=== PATIENT | female | born 1995 | race Two or more races ===

== ENCOUNTER 2025-02-19 16:47 | Inpatient (IN) | payer OTHER ==
[2025-02-19] VITALS (7 sets, daily range): BP systolic 104–127; BP diastolic 55–66; PULSE 74–100; RESP 15–21; TEMP 97.4–98.3; O2SAT 96–100
[~2025-02-19] VITALS: Ht 154.9 cm; Wt 98.9 kg
--- NOTE | 2025-02-19 17:40 | DVHHP2 ---
OB CC & HPI Date Date of Admission: Feb 19, 2025 Patient Identification: : 4 Para: 3 Chief Complaints: Reason for admission: vaginal bleeding, other (Twenty-seven estimated gestational age weeks abruptio placenta patient states she started bleeding at 4:00 p.m. and does not now 5:34 p.m. the OR crew and carton machine operator notified stat approximately 5:00 p.m. check nurse's documentation) Indication for induction: other (Abruption 27 weeks estimated weight 3 lb.) Past Medical History Cardiac: No pertinent Hx Pulmonary: No pertinent Hx Central Nervous System: No pertinent Hx GI: No pertinent Hx Hemotology/Oncology: No pertinent Hx Hepatobiliary: No pertinent Hx Psychiatric: No pertinent Hx Musculoskeletal: No pertinent Hx Rheumotologic: No pertinent Hx Infectious Disease: No peritnent Hx ENT: No pertinent Hx Renal/: No pertinent Hx Endocrine: No pertinent Hx Dermatology: No pertinent Hx Past Surgical History: Other (Cholecystectomy no complications) OB History OB History Care: Limited Care Ultrasounds: Other (No care or ultrasound immediately available u ltrasound performed emergently on arrival see report) Obstetrical Complications: Other (Placenta previa extreme placental abruption) Medical Complications: None Other Concerns: Patient is morbidly obese Allergies: Coded Allergies: NO KNOWN ALLERGIES (Unverified , 02/19/25) Allergies No known drug allergies Family & Social History Family/Social History Blood Type: A+ Rubella: immune RPR/VDRL: Negative GBS Status: Unknown HBsAG: Negative Review of Systems Constitutional: No symptom reported Ears, Nose, & Throat: No symptom reported Eyes: No symptom reported Pulmonary/Respiratory: No symptom reported Cardiovascular: No symptom reported Gastrointestinal: No symptom reported Genitourinary: No symptom reported Musculoskeletal: No symptom reported Skin: No symptom reported Psychiatric: No symptom reported Endocrine: No symptom reported Hemotologic/Lymphatic: No symptom reported OB Admission Exam Physical Exam HEENT: TMs Normal, Fontanelles Normal, Nasal Mucosa Normal, Eyes non-injected, Oropharynx Normal, PERRLA, Moist Membranes, EOMI Heart: Rhythm Normal Lungs: Clear Abdomen: Non tender Extremities: Normal Reflexes: Normal Cervical Dilatation: other (No pelvic exam performed secondary to complete previa and heavy vaginal bleeding heart tones in the 100s as low as 80) OB Plan Plan Admitting Diagnosis: Proximally 27 week intrauterine placenta previa complete by ultrasound today abruptio placenta active heavy vaginal bleeding Plan: Section (Emergent section) Other Plan: Patient and were in the room and we discussed risks benefits complications alternatives we also discussed the fact that she will probably need a classical vertical incision in recommended in the future pregnancies she should have section. She states this is her last . She understands the risks infection bleeding anesthesia acute chronic pain damage to adjacent organs transfusion transfusion reaction my stroke HIV DVT mi paralysis blindness. Despite all these risks patient had only wants to proceed all questions answered and encouraged. Patient understands the the infant as extreme remote from term and then the baby will need full life-support most likely including long-term care and they would like everything done. Visit Coding OBGYN Date of Service: Feb 19, 2025 Billing Provider: MARYELLEN HAYNES DO [employer] Common Visit Codes: [id number] INP/OBS CARE(MOD), [id number] INP/OBS CARE(HIGH), 48052-FLT/OBS SAME DATE (LOW) HORSE BREEDER Procedure Codes: [id number] W/ CARE MARYELLEN HAYNES DO Feb 19, 2025 17:40
--- NOTE | 2025-02-19 17:44 | DVHOP2 ---
Operative Report - 2 Report Details Date: 02/19/25 Preop Diagnosis: Twenty-seven week placenta previa placental abruption , active heavy bleeding Postop Diagnosis: Same Surgeon: Kris Haynes Electro Plater: [facility] was present as well as the OR team. Anesthesiologist: Fabricio GAXIOLA Anesthesia: General Drains: Grover catheter Implant: None Consent: The patient was informed of the risks and benefits of the procedure. These include but are not limited to complications of anesthesia, postoperative infection, incomplete relief of symptoms, recurrence of symptoms, damage to blood vessels, nerves and tendons, deep venous thrombosis, pulmonary embolism and possible need for repeat surgery in the future. Complications: None Estimated Blood Loss: 800 cc Fluids: See anesthesia log Findings: Infant female Apgars 2,4,6 1290 gms Indications for Surgery: 27 week active placental abruption placenta previa bradycardia Name of Procedure Performed Primary vertical uterine incision Procedure Details Procedure Details: Patient is brought to the operating room emergently placed in left lateral tilt supine position as general anesthesia and airway established having already prepped and draped her low Pfannenstiel incision was made with scalpel down to the rectus fascia nicked in midline carried laterally rectus muscle muscle mm midline entered with sharp dissection vesicouterine peritoneum taken off lower uterine segment and a vertical incision was made with scalpel through the uterus down to the chorionic membranes there was proximally 250 cc clot which bowel just out of the the uterus prior to entering the chorionic sac which was ruptured with sharp dissection and had clear fluid was found to be in oblique position face-down backup gently placed 1 hand inside of the hysterotomy incision and reposition the infant to vertex face down and then the head essentially delivered spontaneously nose with body and remaining membranes was immediately handed off to waiting hvac instructor and respiratory team as the cut cord was cut and clamped was not able to obtain CO2 blood gases on the cord as there was scant blood in the cord we were barely able to get some venous blood out of it for labs. At this point placenta completely removed the hysterotomy incision was irrigated lower uterine segment was bluntly opened and we then closed the hysterotomy incision with a running continuous double layer of 0 Vicryl running continuous vesicouterine peritoneum was then replaced with running continuous 2-0 Vicryl we had complete hemostasis at this point EBL 100 cc placenta looked grossly intact other than it was in the lower uterine segment consistent with previa as well as a large clot found which was fresh about the size of my fist. We then cleared cleared the gutters tubes ovaries uterus all appeared normal instrument lap sponge count correct x1 the peritoneum was then closed with running continuous 2-0 Vicryl the rectus fascia was then closed with running continuous 0 looped PDS Camper's Fabiano's fascia were closed with interrupted of plain gut 2-0. And the skin was closed with subcuticular 3-0 Prolene benzoin Steri-Strips placed ABD pad and pressure dressing placed. Patient was then frog-legged in the vaginal clots were cleared and the uterus was firm. was taken to the nursery with the hvac instructor respiratory team mother was taken to PACU recovery room. Specimen: Placenta umbilical blood sample Condition Good Disposition Mother went to PACU went to nursery MARYELLEN HAYNES DO Feb 19, 2025 17:44
[2025-02-19] MEDS ORDERED: DERMOPLAST 60ML BOTTLE TOP PRN (17:45)
[2025-02-19] MEDS ORDERED: BUTORPHANOL TARTRATE 2 MG/1 ML VIAL IV PRN ×2 (17:45)
[2025-02-19] MEDS ORDERED: LIDOCAINE 2%HCL (LOCAL ANESTH.) INJ 20ML MDV IJ PRN (17:45)
[2025-02-19] MEDS ORDERED: PHISODERM TOP SOLN 240ML BTL TOP PRN (17:45)
[2025-02-19] MEDS ORDERED: WITCH HAZEL-GLYCERIN PAD TOP PRN (17:45)
[2025-02-19 18:24] LABS: Hematocrit 30.8 % (36.0-46.0); Hemoglobin 10.0 g/dL (12.2-16.2); Mean Corpuscular Hemoglobin 28.3 pg (28.0-32.0); Mean Corpuscular Volume 86.8 fL (80.0-100.0); Nucleated Red Blood Cells % 0.0 %
[2025-02-19] MEDS: SUCCINYLCHOLINE CHLORIDE 20 MG/ML 10ML VIAL IV ONE (18:28)
[2025-02-19] MEDS: ceFAZolin 2 GM/D5W50ml 50 ML IV ONE (18:29)
[2025-02-19] MEDS ORDERED: MIDAZOLAM HCL 2MG/2ML 2ml VIAL (1mg/ml) ONE (18:32)
[2025-02-19] MEDS ORDERED: fentaNYL CITRATE 5 ML ONE (18:32)
[2025-02-19] MEDS ORDERED: PROPOFOL 10 MG/ML 20 ML IV ONE ×4 (18:34→19:18)
[2025-02-19 18:35] LABS: Alanine Aminotransferase 18 U/L (7-40); Albumin 3.3 g/dL (3.2-4.8); Alkaline Phosphatase 107 U/L (46-116); Anion Gap 11 (5-15); BUN/Creatinine Ratio 19.2 (10.0-20.0); Blood Urea Nitrogen 10 mg/dL (9-23); Calcium 8.8 mg/dL (8.7-10.4); Carbon Dioxide 21 mmol/L (20-31); Chloride 106 mmol/L (98-107); Potassium 4.2 mmol/L (3.5-5.1); Sodium 138 mmol/L (136-145); Total Protein 5.8 g/dL (5.7-8.2)
[2025-02-19] MEDS ORDERED: PHENYLEPHRINE HCL 10 MG/ML VL ONE (18:35)
[2025-02-19 18:42] LABS: Bilirubin, Total 0.2 mg/dL (0.2-1.0); Glucose 107 mg/dL (74-106)
[2025-02-19] MEDS ORDERED: HYDROmorphone HCL 2 MG/ML VL/or syr IV PRN (19:00)
[2025-02-19] MEDS: ACETAMINOPHEN IV 1000 MG/100ML (10MG/ML) IV PRN (19:00)
[2025-02-19] MEDS ORDERED: ONDANSETRON HCL 4 MG/2 ML VIAL IV PRN ×2 (19:00→19:30)
[2025-02-19] MEDS ORDERED: MEPERIDINE HCL (25 MG/ML) 1ML VIAL IV PRN (19:00)
[2025-02-19] MEDS ORDERED: METOCLOPRAMIDE HCL 5MG/ml INJ 2ml VIAL IV PRN (19:00)
[2025-02-19] MEDS ORDERED: MEPERIDINE HCL (25 MG/ML) 1ML VIAL ONE (19:02)
[2025-02-19] MEDS: GELATIN 1 SPONGE SIZE 100 TOP ONE (19:08)
[2025-02-19] MEDS ORDERED: ONDANSETRON HCL 4 MG/2 ML VIAL ONE (19:21)
[2025-02-19] MEDS ORDERED: LACTATED RINGER'S 1,000 ML IV SCH (19:30)
[2025-02-19] MEDS ORDERED: LACT. RINGERS/OXYTOCIN 20UNITS 1,000 ML IV ONE (19:30)
[2025-02-19] MEDS ORDERED: GUM (CHEWING) 1 GUM CHEW CHEW ONE (19:30)
[2025-02-19] MEDS: LACTATED RINGER'S 1,000 ML IV SCH (19:35)
--- NOTE | 2025-02-19 19:41 | DVH ---
OB ULTRASOUND, LIMITED CLINICAL INDICATION: bleeding 27 weeks TECHNIQUE: Multiple grayscale ultrasound and M-mode images were obtained of the pelvis for evaluation of intrauterine . COMPARISON: None FINDINGS: Limited study as the patient was emergently taken to the operating room for a section A single living fetus is seen in variable presentation. Biparietal diameter: 6.8 cm (27 weeks, 3 days) Head Circumference: 26.34 cm (28 weeks, 3 days) Abdomen Circumference: 23.7 cm (27 weeks, 4 days) Femur Length: 6.21 cm (32 weeks, 1 days) Estimated weight: 1362 grams (+/- 204 grams). Placenta: Anterior, grade 2. Possible complete placenta previa although the end of the placenta is n ot well-visualized. Amniotic fluid: Visibly normal. heart rate: 93 beats/min. A complete anatomic survey was not performed on this exam. IMPRESSION: 1. Single living intrauterine with an estimated gestational age of 29 weeks, 0 days, bentley esponding to an estimated date of delivery of 05/07/2025. 2. bradycardia measuring 93 beats per minute
[2025-02-19] MEDS ORDERED: ACETAMINOPHEN IV 100 ML IV ONE (19:56)
[2025-02-19] MEDS: MORPHINE SULFATE 4 MG/ML SYR/VIAL IV PRN (20:07)
[2025-02-19 20:14] LABS: INR 0.95 (0.9-1.15); Partial Thromboplastin Time 24.7 SEC (24.5-34.5); Prothrombin Time 10.1 sec (9.3-11.8)
[2025-02-19 20:53] LABS: Hepatitis C Antibody Negative (Negative)
[2025-02-19] MEDS: HYDROmorphone HCL 2 MG/ML VL/or syr IV PRN (21:54)
[2025-02-20] VITALS (9 sets, daily range): BP systolic 95–119; BP diastolic 52–60; PULSE 68–98; RESP 15–20; TEMP 98.1–98.5; O2SAT 94–99
[2025-02-20] MEDS: ceFAZolin 1GM/50ML 50 ML IV SCH (01:30)
[2025-02-20 01:42] LABS: Urine Protein, UAD TRACE (Negative)
[2025-02-20 01:50] LABS: Opiate Scree,Urine Pos (NEGATIVE); Phencyclidine Screen, Urine Neg (NEGATIVE)
[2025-02-20 02:01] LABS: Amphetamine Screen, Urine Neg (NEGATIVE); Barbiturate Scree,Urine Neg (NEGATIVE); Benzodiazephine Screen, Urine Pos (NEGATIVE); Cannabinoid Screen, Urine Neg (NEGATIVE); Cocaine Screen, Urine Neg (NEGATIVE)
[2025-02-20] MEDS: ACETAMINOPHEN IV 1000 MG/100ML (10MG/ML) IV PRN (02:58)
[2025-02-20 04:47] LABS: Hematocrit 23.6 % (36.0-46.0); Hemoglobin 7.7 g/dL (12.2-16.2); Mean Corpuscular Hemoglobin 27.9 pg (28.0-32.0); Mean Corpuscular Volume 85.1 fL (80.0-100.0); Nucleated Red Blood Cells % 0.1 %
--- NOTE | 2025-02-20 06:20 | DVHPN2 ---
Chief Complaints Patient reports: No new complaints, Feels better Nursing reports: No new complaints, No chest pain, No dizziness, Other (Pain controlled ambulating having minimal were) Objective Vitals Vital Signs Date Time Temp Pulse Resp B/P (MAP) Pulse Ox O2 Delivery O2 Flow Rate FiO2 02/20/25 03:10 98.1 76 15 115/53 (73) 99 98.1 02/19/25 19:30 Room Air 02/19/25 18:31 10.0 100 Medications Current Medications Medications (Trade) Dose Ordered Sig/Truman Route PRN Reason Start Time Stop Time Status Last Admin Acetaminophen (Ofirmev) 1,000 mg [id number] PRN IV MILD PAIN (1-3 PAIN SCALE) 02/20/25 02:45 02/21/25 02:44 02/20/25 02:58 Benzocaine (Dermoplast) 1 applic PRN PRN TOP PERINEAL AREA DISCOMFORT 02/19/25 17:45 Cancel Butorphanol Tartrate (Stadol Injection) 1 mg Q4HPRN PRN IV MODERATE PAIN (4-6 PAIN SCALE) 02/19/25 17:45 Cancel Butorphanol Tartrate (Stadol Injection) 2 mg Q4HPRN PRN IV SEVERE PAIN (7-10 PAIN SCALE) 02/19/25 17:45 Cancel Cefazolin Sodium 50 ml @ 100 mls/hr Q8H IV 02/20/25 01:30 02/20/25 17:59 02/20/25 01:30 Hydromorphone HCl (Dilaudid Injection) 1 mg Q2HPRN PRN IV MODERATE PAIN (4-6 PAIN SCALE) 02/19/25 20:00 02/20/25 01:02 Lactated Ringer's 1,000 ml @ 125 mls/hr Q8H IV 02/19/25 17:45 02/19/25 19:35 Lactated Ringer's 1,000 ml @ 125 mls/hr Q8H IV 02/19/25 19:30 Lidocaine HCl (Xylocaine) 20 ml ONCE PRN IJ PERINEAL AREA DISCOMFORT 02/19/25 17:45 Cancel Morphine Sulfate 2 mg Q4HP PRN IV SEVERE PAIN (7-10 PAIN SCALE) 02/19/25 19:30 02/19/25 20:07 Ondansetron HCl (Zofran) 4 mg Q4HP PRN IV NAUSEA / VOMITING 02/19/25 19:30 Sodium Lauryl Sulfate (Phisoderm) 240 ml PRN PRN TOP PERINEAL AREA DISCOMFORT 02/19/25 17:45 Cancel Witch Kirstie (Tucks) 1 pad PRN PRN TOP PERINEAL AREA DISCOMFORT 02/19/25 17:45 Cancel General: Normal Lungs: Normal Cardiovascular: Normal Abdominal: Normal (Wound clean dry and intact) Musculoskeletal: Normal Extremities: Normal Skin: Normal Neurological: Normal Studies Laboratory Tests 02/20/25 03:24 02/19/25 17:46 Test 02/19/25 17:46 Range/Units Serum Glucose 107 H 74-106 mg/dL Ass/Plan Assessment Postop day 1 stable advanced Plan Advanced care MARYELLEN Sloan DO Feb 20, 2025 06:20
[2025-02-20] MEDS: HYDROcodone-ACET 5/325MG TAB PO PRN (12:25)
[2025-02-20 17:49] LABS: Hematocrit 27.5 % (36.0-46.0); Hemoglobin 9.0 g/dL (12.2-16.2); Mean Corpuscular Hemoglobin 28.3 pg (28.0-32.0); Mean Corpuscular Volume 86.0 fL (80.0-100.0); Nucleated Red Blood Cells % 0.0 %
[2025-02-20] MEDS: SIMETHICONE 80 MG CHEWABLE TABLET PO SCH (19:22)
[2025-02-20] MEDS: IBUPROFEN 800 MG TAB PO PRN (21:00)
[2025-02-20] MEDS: DOCUSATE SOD 100 MG CAP PO SCH (22:34)
[2025-02-21 03:00] VITALS: BP 96/51; PULSE 86; RESP 16; TEMP 98; O2SAT 96
--- NOTE | 2025-02-21 04:21 | DVHPN2 ---
Chief Complaints Patient reports: No new complaints (Coping well. Ambulates and voids well. Tolerates foods well. Baby transferred. Denies blues) Nursing reports: No new complaints Objective Vitals Vital Signs Date Time Temp Pulse Resp B/P (MAP) Pulse Ox O2 Delivery O2 Flow Rate FiO2 02/21/25 03:00 98.0 86 16 96/51 (66) 96 98.0 02/20/25 18:30 Room Air 02/19/25 18:31 10.0 100 Medications Current Medications Medications (Trade) Dose Ordered Sig/Truman Route PRN Reason Start Time Stop Time Status Last Admin Acetaminophen/ Hydrocodone Bitart ([place] 5/325MG Tab) 1 tab Q4HPRN PRN PO FOR PAIN 1-6 02/20/25 10:45 Acetaminophen/ Hydrocodone Bitart ([place] 5/325MG Tab) 2 tab Q4HPRN PRN PO FOR PAIN 7-10 02/20/25 10:45 02/20/25 23:07 Dimethicone (Mylicon Tab) 80 mg QID PO 02/20/25 12:00 02/20/25 19:22 Docusate Sodium (Colace Capsule) 100 mg Q12HR PO 02/20/25 22:00 02/20/25 22:34 Ibuprofen (Motrin Tablet) 800 mg Q8HP PRN PO BREAKTHROUGH PAIN 02/20/25 10:45 02/20/25 21:00 General: Normal Lungs: Normal, Normal breath sounds, Lungs clear Cardiovascular: Normal, Regular rate and rhythm Abdominal: Normal (Incision clean, dry, and intact. BS+ x 4Q) Musculoskeletal: Normal Extremities: Normal Skin: Normal Others Breasts soft, nipples intact Lochia minimal, no odor Studies Laboratory Tests 02/20/25 17:26 02/19/25 17:46 Test 02/19/25 17:46 Range/Units Serum Glucose 107 H 74-106 mg/dL Ass/Plan Assessment 2nd PP/Post OP day Plan Continue PP/Post OP management Evaluate for d/c tomorrow CLIVE CARDENAS CNM Feb 21, 2025 04:21
--- NOTE | 2025-02-21 10:33 | DVHINCON2 ---
Date of Service if different f: Feb 21, 2025 Consultation ([facility]) Labs Laboratory Tests Test 02/19/25 17:46 02/19/25 19:37 02/20/25 01:15 02/20/25 17:26 Sodium Level 138 mmol/L (136-145) Potassium Level 4.2 mmol/L (3.5-5.1) Chloride Level 106 mmol/L (98-107) Carbon Dioxide Level 21 mmol/L (20-31) Anion Gap 11 (5-15) Blood Urea Nitrogen 10 mg/dL (9-23) Creatinine 0.52 mg/dL (0.550-1.02) Glomerular Filtration Rate Calc 129 mL/min (>90) BUN/Creatinine Ratio 19.2 (10.0-20.0) Serum Glucose 107 mg/dL (74-106) Calcium Level 8.8 mg/dL (8.7-10.4) Total Bilirubin 0.2 mg/dL (0.2-1.0) Aspartate Amino Transf (AST/SGOT) 20 U/L (13-40) Alanine Aminotransferase (ALT/SGPT) 18 U/L (7-40) Alkaline Phosphatase 107 U/L (46-116) Total Protein 5.8 g/dL (5.7-8.2) Albumin 3.3 g/dL (3.2-4.8) Treponema pallidum Antibody Non-reactive (Negative) Hepatitis B Surface Antigen Negative (Negative) Hepatitis C Antibody Negative (Negative) HIV (1&2) Antibody Negative (Negative) Rubella Antibody Positive Prothrombin Time 10.1 sec (9.3-11.8) Prothromb Time International Ratio 0.95 (0.9-1.15) Activated Partial Thromboplast Time 24.7 SEC (24.5-34.5) Urine Color Yellow (Yellow) Urine Clarity Clear (Clear) Urine pH 6.0 (5.0-9.0) Urine Specific [place] 1.033 (1.001-1.035) Urine Protein Trace (Negative) Urine Ketones 2+ (Negative) Urine Blood Negative /uL (Negative) Urine Nitrite Negative (Negative) Urine Bilirubin Negative (Negative) Urine Urobilinogen Normal mg/dL (Negative) Urine Leukocyte Esterase Negative /uL (Negative) Urine RBC None seen /hpf (0 - 4) Urine Microscopic WBC 2 /HPF (0-5) Urine Squamous Epithelial Cells Few /hpf (<5) Urine Bacteria None seen /hpf (None Seen) Urine Mucus Few (None Seen) Urine Glucose Normal mg/dL (Normal) Urine Opiates Screen Pos (NEGATIVE) Urine Fentanyl Screen Pos (NEGATIVE) Urine Barbiturates Screen Neg (NEGATIVE) Urine Phencyclidine Screen Neg (NEGATIVE) Urine Amphetamines Screen Neg (NEGATIVE) Urine Benzodiazepines Screen Pos (NEGATIVE) Urine Cocaine Screen Neg (NEGATIVE) Urine Cannabinoids Screen Neg (NEGATIVE) White Blood Count 15.5 10^3/uL (4.4-10.8) Red Blood Count 3.20 10^6/uL (4.0-5.20) Hemoglobin 9.0 g/dL (12.2-16.2) Hematocrit 27.5 % (36.0-46.0) Mean Corpuscular Volume 86.0 fL (80.0-100.0) Mean Corpuscular Hemoglobin 28.3 pg (28.0-32.0) Mean Corpuscular Hemoglobin Concent 32.8 g/dL (32.0-36.0) Red Cell Distribution Width 13.5 % (11.8-14.3) Platelet Count 226 10^3/uL (140-450) Mean Platelet Volume 9.1 fL (6.9-10.8) Neutrophils (%) (Auto) 78.5 % (37.0-80.0) Lymphocytes (%) (Auto) 14.1 % (10.0-50.0) Monocytes (%) (Auto) 7.0 % (0.0-12.0) Eosinophils (%) (Auto) 0.1 % (0.0-7.0) Basophils (%) (Auto) 0.3 % (0.0-2.0) Neutrophils # (Auto) 12.2 10 ^3/uL (1.6-8.6) Lymphocytes # (Auto) 2.2 10 ^3/uL (0.4-5.4) Monocytes # (Auto) 1.1 10 ^3/uL (0-1.3) Eosinophils # (Auto) 0 10 ^3/uL (0-0.8) Basophils # (Auto) 0 10 ^3/uL (0-0.2) Nucleated Red Blood Cells 0.0 % Appetite: Good Appearance: Stated age, Groomed Psychomotor activity: WNL Behavioral: Cooperative Eye contact: Appropriate Speech: WNL Affect: Mood Congruent Mood: Anxious Thought processes: Linear/Goal-directed Thought content: WNL Suicidal ideations: Absent Homicidal ideations: Absent Orientation: Person, Place, Time, Situation Memory intact: Recent Intellect: Average Abstractability: WNL Concentration: Adequate Attention: Adequate Judgement: WNL Insight: Good Vitals Vital Signs Date Time Temp Pulse Resp B/P (MAP) Pulse Ox O2 Delivery O2 Flow Rate FiO2 02/21/25 07:00 Room Air 0.0 02/21/25 03:00 98.0 86 16 96/51 (66) 96 98.0 02/19/25 18:31 100 Current medications Current Medications Medications Dose Ordered Sig/Truman Route Start Time Stop Time Status Last Admin Dose Admin Witgina Kirstie 1 pad PRN PRN TOP 02/19/25 17:45 Cancel Sodium Lauryl Sulfate 240 ml PRN PRN TOP 02/19/25 17:45 Cancel Benzocaine 1 applic PRN PRN TOP 02/19/25 17:45 Cancel Butorphanol Tartrate 1 mg Q4HPRN PRN IV 02/19/25 17:45 Cancel Butorphanol Tartrate 2 mg Q4HPRN PRN IV 02/19/25 17:45 Cancel Lidocaine HCl 20 ml ONCE PRN IJ 02/19/25 17:45 Cancel Hydromorphone HCl 1 mg Q2HPRN PRN IV 02/19/25 20:00 02/20/25 07:53 1 MG Docusate Sodium 100 mg Q12HR PO 02/20/25 22:00 02/21/25 10:01 100 MG Dimethicone 80 mg QID PO 02/20/25 12:00 02/21/25 05:32 80 MG Ibuprofen 800 mg Q8HP PRN PO 02/20/25 10:45 02/20/25 21:00 800 MG Acetaminophen/ Hydrocodone Bitart 1 tab Q4HPRN PRN PO 02/20/25 10:45 Acetaminophen/ Hydrocodone Bitart 2 tab Q4HPRN PRN PO 02/20/25 10:45 02/21/25 08:40 2 TAB Medication adjusted: No Labs ordered: No Diagnosis: adjustment disorder Plan : Patient has normal sadness associate with traumatic delivery. She denies suicidal/homicidal thoughts. Patient can benefit with referrals for outpatient support for therapy/counseling. Patient may discharge after medical clearance History of Present Illness Reason for Consult : [place] scale score of 11 HPI : This is a 29-year-old female presented here for abnormal bleeding with and delivered at 27 weeks and ruptured placenta. Patient delivered baby and now in NICU. Patient is evaluated via telepsychiatry platform. She reports having a traumatic 3 days. She woke up with bleeding and went to the hospital because worried about her baby. She is sad because this is the most traumatic thing that has ever happened to her and also has not seen her baby. She wants to see her baby but told she will see baby tomorrow and looking forward to that. She denies feeling depressed, anhedonia or hopelessness. She has a 9 year child at home and no hx of depression or psychosis with that . She denies suicidal/homicidal ideation. She denies any prior history of humble or psychosis and presently no auditory/visual hallucinations or paranoid thoughts. Past Psychiatric History : She denies any prior diagnoses, psych admissions, holds or suicide attempts. She denies prior prescription for psychotropic medications. Past Medical History : She denies Social History : She lives with and their child. She denies any history or trauma or abuse. She reports good support with spouse and feels safe at home. She denies any substance use. She denies any known family history. She is employed in transportation logistics. ALMA OSCAR DNP Feb 21, 2025 10:33
[2025-02-21] MEDS ORDERED: HYDR-4072 PO (10:37)
[2025-02-21] MEDS ORDERED: IBUP-1456 PO (10:37)
[2025-02-21] MEDS ORDERED: DOCU-94 PO (10:37)
[2025-02-21 11:20] VITALS: BP 108/58; PULSE 89; RESP 15; TEMP 98.9; O2SAT 96
[2025-02-21 11:37] LABS: Hemoglobin 7.8 g/dL (12.2-16.2); Nucleated Red Blood Cells % 0.0 %
[2025-02-21 11:38] LABS: Hematocrit 23.1 % (36.0-46.0); Mean Corpuscular Hemoglobin 28.4 pg (28.0-32.0); Mean Corpuscular Volume 84.6 fL (80.0-100.0)
[2025-02-21 15:00] VITALS: BP 121/61; PULSE 104; RESP 18; TEMP 98.2; O2SAT 97
[2025-02-21] MEDS: HYDROcodone-ACET 5/325MG TAB PO PRN (15:03)
[2025-02-21 18:46] VITALS: BP 135/62; PULSE 86; RESP 8; TEMP 98.1; O2SAT 98
--- NOTE | 2025-02-21 19:45 | DVHPN2 ---
Progress Note Date Seen: Feb 21, 2025 Subjective Colleen is standing and ambulating around room upon entry. She is really feeling ready to be discharged and wants to go home so she can get to her baby sooner. SUBJECTIVE: -Lochia minimal -Regular diet well tolerated. -Ambulating and voiding well w/o feeling dizzy or lightheaded -Pain relieved with oral medication PRN -Passing flatus but no BM yet. -Has been pumping to stimulate milk/colostrum production, but has not seen any -Desires and requests to be discharged home today (02/21) vital signs Vital Sign Date Time Temp Pulse Resp B/P (MAP) Pulse Ox O2 Delivery O2 Flow Rate FiO2 02/21/25 18:46 Room Air 0.0 02/21/25 18:46 98.1 86 8 135/62 (86) 98 98.1 02/19/25 18:31 100 Total Intake and Output 02/20/25 02/20/25 02/21/25 15:00 23:00 07:00 Output Total 1200 ml 400 ml Balance -1200 ml -400 ml medications Current Medications Medications Dose Ordered Sig/Truman Route Start Time Stop Time Status Last Admin Dose Admin Marcio Thacker 1 pad PRN PRN TOP 02/19/25 17:45 Cancel Sodium Lauryl Sulfate 240 ml PRN PRN TOP 02/19/25 17:45 Cancel Benzocaine 1 applic PRN PRN TOP 02/19/25 17:45 Cancel Butorphanol Tartrate 1 mg Q4HPRN PRN IV 02/19/25 17:45 Cancel Butorphanol Tartrate 2 mg Q4HPRN PRN IV 02/19/25 17:45 Cancel Lidocaine HCl 20 ml ONCE PRN IJ 02/19/25 17:45 Cancel Hydromorphone HCl 1 mg Q2HPRN PRN IV 02/19/25 20:00 02/20/25 07:53 1 MG Docusate Sodium 100 mg Q12HR PO 02/20/25 22:00 02/21/25 10:01 100 MG Dimethicone 80 mg QID PO 02/20/25 12:00 02/21/25 17:29 80 MG Ibuprofen 800 mg Q8HP PRN PO 02/20/25 10:45 02/20/25 21:00 800 MG Acetaminophen/ Hydrocodone Bitart 1 tab Q4HPRN PRN PO 02/20/25 10:45 02/21/25 15:03 1 TAB Acetaminophen/ Hydrocodone Bitart 2 tab Q4HPRN PRN PO 02/20/25 10:45 02/21/25 08:40 2 TAB laboratory and microbiology Laboratory Tests 02/21/25 11:05 02/19/25 17:46 Test 02/19/25 17:46 Range/Units Serum Glucose 107 H 74-106 mg/dL Objective OBJECTIVE: -A&O x4. No apparent distress. Affect appropriate -Afebrile, VSS -Chest: heart and lung sounds normal. -Breasts: Nipples intact w/o cracks or soreness -Abdomen: normal BS, soft, non-tender, no rebound or guarding, fundus firm @ U- 1, -Lower abdominal incision site with dressing dry and intact. No edema, erythema or induration -Extremities: no edema or tenderness Problems(with codes): (1) Status post delivery Assessment/Plan ASSESSMENT 29 yo now Post operative & ppd # 2 s/p Primary Section for placental previa with abruption, doing well. Pumping Bleeding with acute drop in hematocrit PLAN -Continue pain management with oral medications as previously ordered -Increase fluid intake and fiber in diet to promote regular bowel movements, Laxative PRN -Discussed hand expression vs pumping and other ways to perform breast massage. Encouraged patient to continue stimulating breast and production will follow. -Recommended patient take iron every other day for at least a month -Educated patient on self-care and warning signs to watch for, including PPH, PPD, infection, and pre-eclampsia -Anticipate discharge today, whenever patient is ready Plan discussed with: Patient Visit Coding OBGYN Date of Service: Feb 21, 2025 Billing Provider: DORY MORENO CNM CORE MACHINE OPERATOR Common Visit Codes: [id number] INP/OBS CARE(MOD) DORY MORENO CNM Feb 21, 2025 19:45
--- NOTE | 2025-02-21 19:47 | DVHDS2 ---
Obstetrics Discharge Summary Obstetrics Discharge Summary Date of Admission: Feb 19, 2025 Date of Discharge: Feb 21, 2025 Reason For Admission: Vaginal Bleeding ( at 27w2d admitted for placenta previa and abruption. Consented to emergency section. Baby transferred to [facility]. Hgb dropped to 7.0. Otherwise PP course without complication) Intrapartum Procedures: (Low Cervical Transverse) Discharge Diagnosis: Placenta Previa, Delivery Discharge Information: Activity (Unrestricted. Advance as tolerated. Balance activities with rest periods. No heavy lifting, pushing or straining. Pelvic rest x 6 weeks), Diet (Routine), Medications (see med list), Instructions (Routine), Discharge to (Home), Accompanied by (partner), Discarge date (02/21/25) Discharge Care Plan Instructions - self care instructions given - emergency signs and symptoms including but not limited to pre-eclampsia precautions and signs of infection, PPH & of PPD reviewed with patient. -Follow up with OB Provider in 1 week for incision check Visit Coding OBGYN Date of Service: Feb 21, 2025 Billing Provider: DORY MORENO CNM LOAN OPERATIONS MANAGER Common Visit Codes: [id number] DISCH DAY >30MIN DORY MORENO CNM Feb 21, 2025 19:47
[2025-02-21 20:16] VITALS: BP 131/65; PULSE 84; RESP 18; TEMP 98.1; O2SAT 99
== END 2025-02-21 20:16 | disposition home or self-care (01) | DRG 786 ==
LOC: LDRP 16:47 → OBSVTOIN 17:31
PROVIDERS: ADMIT Obstetrics & Gynecology; ATTEND Obstetrics & Gynecology
PROC: 10D00Z1 Extraction of Products of Conception, Low, Open Approach (ICD-10-PCS; principal; 2025-02-19 17:40)
DX: O44.12 Complete placenta previa with hemorrhage, second trimester (principal); O60.12X0 Preterm labor second trimester with preterm delivery second trimester, not applicable or unspecified; Z3A.27 27 weeks gestation of pregnancy; O99.214 Obesity complicating childbirth; Z37.0 Single live birth; F43.20 Adjustment disorder, unspecified; O45.92 Premature separation of placenta, unspecified, second trimester; N93.9 Abnormal uterine and vaginal bleeding, unspecified; O76 Abnormality in fetal heart rate and rhythm complicating labor and delivery; O99.344 Other mental disorders complicating childbirth
CPT/HCPCS: 36415; 59025; 76805; 80053; 80307; 81001; 81002; 85025; 85610; 85730; 86703; 86762; 86780; 86803; 86850; 86900; 86901; 87340; 87426; 94760; 94762; 96360; 96361; 96365; 96366; 96374; G0378; J0131; J0330; J2250; J2405; J2590; J2704